=== PATIENT | male | born 1945 | race Two or more races ===

== ENCOUNTER 2018-02-13 15:10 | Emergency (ER) | payer OTHER ==
[~2018-02-13] VITALS: Ht 162.6 cm; Wt 81.6 kg
== END 2018-02-13 17:32 | disposition home or self-care (01) ==
LOC: ER 15:10
DX: L02.212 Cutaneous abscess of back [any part, except buttock and flank] (principal)

== ENCOUNTER 2018-02-18 15:41 | Emergency (ER) | payer OTHER ==
[~2018-02-18] VITALS: Ht 162.6 cm; Wt 81.2 kg
== END 2018-02-18 18:38 | disposition home or self-care (01) ==
LOC: ER 15:41
DX: L02.212 Cutaneous abscess of back [any part, except buttock and flank] (principal); I16.0 Hypertensive urgency; I10 Essential (primary) hypertension

== ENCOUNTER 2020-11-03 10:07 | Outpatient (CLI) | payer OTHER | END 2020-11-03 10:18 | disposition home or self-care (01) | LOC: TOM 10:07 | DX: I82.412 Acute embolism and thrombosis of left femoral vein (principal); R97.20 Elevated prostate specific antigen [PSA]; R05 Cough | CPT/HCPCS: 74177; 71046; Q9965 ==

== ENCOUNTER → 2022-06-30 16:39 | Outpatient (CLI) | payer OTHER | END | disposition home or self-care (01) | LOC: LAB 16:39 | PROVIDERS: ATTEND Urology | DX: R97.20 Elevated prostate specific antigen [PSA] (principal) ==

== ENCOUNTER 2022-07-07 12:21 | Outpatient (CLI) | payer OTHER | END 2022-07-07 12:26 | disposition home or self-care (01) | LOC: SONOGRAMA 12:21 | PROVIDERS: ATTEND Urology | DX: D29.1 Benign neoplasm of prostate (principal); D40.0 Neoplasm of uncertain behavior of prostate; R97.20 Elevated prostate specific antigen [PSA] ==

== ENCOUNTER 2022-12-26 15:12 | Inpatient (IN) | payer OTHER ==
[~2022-12-26] VITALS: Ht 160 cm; Wt 137.9 kg
[2022-12-26] MEDS ORDERED: ATORVASTATIN CA40 MG PO (15:43)
[2022-12-26] MEDS ORDERED: LEVOTHYROXINE25 MC1 PO (15:43)
[2022-12-26] MEDS ORDERED: CLOPIDOGREL BIS75 MG PO (15:43)
[2022-12-26] MEDS ORDERED: ST. JOSEPH ASPI81 M2 PO (15:43)
[2022-12-26] MEDS ORDERED: METOPROLOL SUCC25 MG PO (15:43)
[2022-12-26] MEDS ORDERED: FUROSEMIDE20 MG PO (15:43)
[2022-12-27] MEDS ORDERED: TRELEGY ELLIPT1 EACH (10:06)
[2022-12-27] MEDS ORDERED: LATANOPROST2.5 ML (10:06)
[2022-12-27] MEDS ORDERED: EZETIMIBE10 MG (10:06)
[2022-12-27] MEDS ORDERED: ESTAZOLAM1 MG (10:06)
[2022-12-27] MEDS ORDERED: LOSARTAN POTASS50 MG (10:07)
[2022-12-27] MEDS ORDERED: VITAMIN D3250 MC1 (10:07)
[2022-12-27] MEDS ORDERED: ROSUVASTATIN CA40 MG (10:07)
[2022-12-27] MEDS ORDERED: METFORMIN HCL500 M4 (10:07)
[2022-12-27] MEDS ORDERED: AMLODIPINE BESYL5 MG (10:07)
[2022-12-27] MEDS ORDERED: CARVEDILOL12.5 M1 (10:07)
[2022-12-27] MEDS ORDERED: FINASTERIDE5 MG (10:07)
[2022-12-27] MEDS ORDERED: TAMSULOSIN HCL0.4 MG (10:07)
== END 2023-01-02 18:04 | disposition home or self-care (01) | DRG 571 ==
LOC: ER 15:12 → SURH 20:43
PROVIDERS: ADMIT Specialist; ATTEND Specialist
PROC: 0JB90ZZ Excision of Buttock Subcutaneous Tissue and Fascia, Open Approach (ICD-10-PCS; principal; 2022-12-27)
DX: L89.314 Pressure ulcer of right buttock, stage 4 (principal); N39.0 Urinary tract infection, site not specified; L89.324 Pressure ulcer of left buttock, stage 4; B95.2 Enterococcus as the cause of diseases classified elsewhere; B95.62 Methicillin resistant Staphylococcus aureus infection as the cause of diseases classified elsewhere; N40.0 Benign prostatic hyperplasia without lower urinary tract symptoms; I11.9 Hypertensive heart disease without heart failure; F32.9 Major depressive disorder, single episode, unspecified; Z91.199 Patient's noncompliance with other medical treatment and regimen due to unspecified reason

== ENCOUNTER 2023-01-05 16:35 | Inpatient (IN) | payer OTHER ==
[~2023-01-05] VITALS: Ht 167.6 cm; Wt 62.6 kg
[~2023-01-05 16:35] MED LIST: AMLODIPINE BESYL5 MG; ATORVASTATIN CA40 MG PO; CARVEDILOL12.5 M1; CLOPIDOGREL BIS75 MG PO; ESTAZOLAM1 MG; EZETIMIBE10 MG; FINASTERIDE5 MG; FUROSEMIDE20 MG PO; LATANOPROST2.5 ML; LEVOTHYROXINE25 MC1 PO; LOSARTAN POTASS50 MG; METFORMIN HCL500 M4; METOPROLOL SUCC25 MG PO; ROSUVASTATIN CA40 MG; ST. JOSEPH ASPI81 M2 PO; TAMSULOSIN HCL0.4 MG; TRELEGY ELLIPT1 EACH; VITAMIN D3250 MC1
--- NOTE | 2023-01-05 16:50 | NUR ---
PACIENTE ALERTA Y ORIENTDADO X 3 EN COMPANIA DE FAMILIAR REFIERE LAWRENCE EN LA ORIENA PACIENTE TIENE MARTINEZ ADEMAS REFIERE QUE EL ODILON LO DIRON DE JUNE PARA CONTINUIDAD DE TRATAMIENTO EN EL HOGAR ALLYSON ENFERMERAS NO LO PUDIERON CANALIZAR PARA CONTINUAR CON ANTIBIOTICOS VANCOMYCIN Y MEDICO LO EN ENVIA A ER.
--- NOTE | 2023-01-05 17:36 | NUR ---
SE EDUCA A PTE SOBRE [place] [facility] [place] REFIERE ENTENDER SE MARISSA MUESTRAS DE LABORATORIO UTILIZANDO MEDIDAS ASEPTICAS. SE COLOCA H/L A PTE JORGE LUIS DE EDEMA. SE ADMINISTRAN MEDICAMENTOS LOS CUALES [place]. PTE EN ESPERA DE CONSULTA CON MEDICINA INTERNA.
== END 2023-01-26 21:24 | disposition home or self-care (01) | DRG 580 ==
LOC: ER 16:35 → MEDJ 19:38
PROVIDERS: General Practice; Internal Medicine Infectious Disease; Internal Medicine Nephrology; ADMIT Specialist; ATTEND Specialist
PROC: 0VT08ZZ Resection of Prostate, Via Natural or Artificial Opening Endoscopic (ICD-10-PCS; 2023-01-05)
PROC: BW21ZZZ Computerized Tomography (CT Scan) of Abdomen and Pelvis (ICD-10-PCS; 2023-01-05)
PROC: 0JD90ZZ Extraction of Buttock Subcutaneous Tissue and Fascia, Open Approach (ICD-10-PCS; principal; 2023-01-09)
PROC: 02HV33Z Insertion of Infusion Device into Superior Vena Cava, Percutaneous Approach (ICD-10-PCS; 2023-01-09)
PROC: 0JD90ZZ Extraction of Buttock Subcutaneous Tissue and Fascia, Open Approach (ICD-10-PCS; 2023-01-19)
PROC: 0JD90ZZ Extraction of Buttock Subcutaneous Tissue and Fascia, Open Approach (ICD-10-PCS; 2023-01-24)
PROC: BW21ZZZ Computerized Tomography (CT Scan) of Abdomen and Pelvis (ICD-10-PCS; 2023-01-24)
DX: L89.314 Pressure ulcer of right buttock, stage 4 (principal); B37.49 Other urogenital candidiasis; E87.1 Hypo-osmolality and hyponatremia; Z16.24 Resistance to multiple antibiotics; N17.8 Other acute kidney failure; L89.324 Pressure ulcer of left buttock, stage 4; L08.89 Other specified local infections of the skin and subcutaneous tissue; B95.62 Methicillin resistant Staphylococcus aureus infection as the cause of diseases classified elsewhere; N40.1 Benign prostatic hyperplasia with lower urinary tract symptoms; R33.8 Other retention of urine; R31.9 Hematuria, unspecified; K59.00 Constipation, unspecified; I95.81 Postprocedural hypotension; E86.0 Dehydration; I87.2 Venous insufficiency (chronic) (peripheral); I10 Essential (primary) hypertension; F06.31 Mood disorder due to known physiological condition with depressive features; Z96.0 Presence of urogenital implants; Z86.73 Personal history of transient ischemic attack (TIA), and cerebral infarction without residual deficits

== ENCOUNTER 2023-03-23 17:54 | Outpatient (CLI) | payer OTHER | END 2023-03-23 17:57 | disposition home or self-care (01) | LOC: LAB 17:54 | PROVIDERS: ATTEND Urology | DX: N30.00 Acute cystitis without hematuria (principal) ==

== ENCOUNTER 2023-05-21 12:11 | Outpatient (CLI) | payer OTHER | END 2023-05-21 12:17 | disposition home or self-care (01) | LOC: SONOGRAMA 12:11 | DX: N18.31 Chronic kidney disease, stage 3a (principal); R80.0 Isolated proteinuria; R31.29 Other microscopic hematuria; N40.0 Benign prostatic hyperplasia without lower urinary tract symptoms ==